=== PATIENT | female | born 1995 | race Hispanic/Latino ===

== ENCOUNTER 2017-08-02 10:48 | Emergency (ER) | payer MEDICAID | END 2017-08-02 11:37 | disposition home or self-care (01) | LOC: EDH 10:48 | DX: R07.89 Other chest pain (principal) | CPT/HCPCS: 99281 ==

== ENCOUNTER 2017-08-07 00:27 | Emergency (ER) | payer MEDICAID | END 2017-08-07 01:23 | disposition home or self-care (01) | LOC: EDH 00:27 | DX: S63.591A Other specified sprain of right wrist, initial encounter (principal); W18.39XA Other fall on same level, initial encounter; Y93.89 Activity, other specified; Y92.098 Other place in other non-institutional residence as the place of occurrence of the external cause; Y99.8 Other external cause status | CPT/HCPCS: 29125; 73110 ==

== ENCOUNTER 2017-09-24 12:31 | Emergency (ER) | payer MEDICAID ==
[2017-09-24] MEDS ORDERED: CHARCOAL/SORBITOL 50 GM/240 ML SUSP ONE (12:59)
[2017-09-24] MEDS ORDERED: CHARCOAL/AQUA 25 GM/120 ML TUBE ONE (12:59)
[2017-09-24 13:38] LABS: BASOPHILS % (AUTO) 0.2 % (0.0-5.0); EOSINOPHILS % (AUTO) 1.4 % (0.0-8.0); HEMATOCRIT 42.7 % (36-48); LYMPHOCYTES % (AUTO) 29.6 % (21.0-51.0); MEAN CORPUSCULAR HEMOGLOBIN 29.1 pg (27.0-33.0); MEAN CORPUSCULAR HGB CONC 34.3 g/dL (32.0-36.0); MONOCYTES % (AUTO) 6.4 % (3.0-13.0); NEUTROPHILS % (AUTO) 62.4 % (40.0-77.0); NUCLEATED RED BLOOD CELLS 0.1 % (0.0-0.19); PLATELET COUNT (AUTO) 296 K/uL (130-400); RED BLOOD CELL COUNT(AUTO) 5.02 MIL/uL (4.00-5.50); RED CELL DISTRIBUTION WIDTH 13.8 % (11.0-15.5); WHITE BLOOD COUNT (AUTO) 7.2 K/uL (4.8-10.8)
[2017-09-24 13:50] LABS: CARBON DIOXIDE 28 mmol/L (21-32); CHLORIDE 106 mmol/L (101-111); CREATININE 0.6 mg/dL (0.5-1.5); GLOMERULAR FILTR. RATE CALC 137 mL/min (>60); GLUCOSE,RANDOM 89 mg/dL (70-105); POTASSIUM 3.6 mmol/L (3.5-5.1); SODIUM SERUM 143 mmol/L (136-145); UREA NITROGEN, BLOOD 10 mg/dL (7-18)
[2017-09-24 13:55] LABS: ALANINE AMINOTRANSFERASE 89 U/L (12-78); ALBUMIN 4.1 g/dL (3.5-5.0); ASPARTATE AMINOTRANSFERASE 38 U/L (10-37); BILIRUBIN,TOTAL 0.7 mg/dL (0.2-1.0); TOTAL PROTEIN, SERUM 8.4 g/dL (6.0-8.3)
[2017-09-24 13:56] LABS: ACETAMINOPHEN < 1 mcg/mL (10-30); ALCOHOL, BLOOD < 3 mg/dL (0-10)
[2017-09-24 13:57] LABS: SALICYLATE < 2.8 mg/dL (2.8-20.0)
[2017-09-24 15:00] LABS: APPEARANCE,URINE CLOUDY (CLEAR); BILIRUBIN,URINE SMALL (NEGATIVE); COLOR,URINE YELLOW (YELLOW); GLUCOSE, URINE (UA) NEGATIVE (NEGATIVE); KETONES,URINE NEGATIVE (NEGATIVE); LEUKOCYTE ESTERASE ,URINE SMALL (NEGATIVE); NITRATE,URINE NEGATIVE (NEGATIVE); OCCULT BLOOD,URINE LARGE (NEGATIVE); PROTEIN,URINE TRACE (NEGATIVE)
[2017-09-24 15:08] LABS: AMPHET/METH SCREEN,URINE NEGATIVE (NEGATIVE); BARBITURATE SCREEN, URINE NEGATIVE (NEGATIVE); BENZODIAZEPINES SCREEN,URINE NEGATIVE (NEGATIVE); CANNABINOID SCREEN,URINE POSITIVE (NEGATIVE); COCAINE SCREEN,URINE NEGATIVE (NEGATIVE); OPIATE SCREEN,URINE NEGATIVE (NEGATIVE); PHENCYCLIDINE SCREEN,URINE NEGATIVE (NEGATIVE)
[2017-09-24 15:25] LABS: BACTERIA,URINE Few /HPF (None Seen); SQUAMOUS EPITHELIAL CELL,UR Moderate /HPF (0-2)
[2017-09-24 15:26] LABS: MUCUS,URINE Few LPF (None Seen)
== END 2017-09-24 18:11 | disposition home or self-care (01) ==
LOC: EDH 12:31
DX: T43.221A Poisoning by selective serotonin reuptake inhibitors, accidental (unintentional), initial encounter (principal); F41.9 Anxiety disorder, unspecified; Y92.89 Other specified places as the place of occurrence of the external cause
CPT/HCPCS: 36415; 80053; 80305; 81001; 85025; 93005; 99291; G0480 ×2; G0481

== ENCOUNTER 2018-04-04 01:38 | Emergency (ER) | payer MEDICAID ==
[2018-04-04] MEDS ORDERED: KETOROLAC TROMETHAMINE 60 MG/2 ML VIAL ONE (02:27)
[2018-04-04] MEDS ORDERED: CYCLOBENZAPRINE HCL 10 MG TABLET ONE (02:28)
== END 2018-04-04 02:38 | disposition home or self-care (01) ==
LOC: EDH 01:38
DX: M62.830 Muscle spasm of back (principal)
CPT/HCPCS: 96372; 99283; J1885

== ENCOUNTER 2018-06-10 14:29 | Emergency (ER) | payer MEDICAID ==
[2018-06-10 15:13] LABS: APPEARANCE,URINE CLOUDY (CLEAR); BILIRUBIN,URINE NEGATIVE (NEGATIVE); COLOR,URINE YELLOW (YELLOW); GLUCOSE, URINE (UA) NEGATIVE (NEGATIVE); KETONES,URINE 40 mg/dL (NEGATIVE); LEUKOCYTE ESTERASE ,URINE TRACE (NEGATIVE); NITRATE,URINE NEGATIVE (NEGATIVE); OCCULT BLOOD,URINE TRACE-INTACT (NEGATIVE); PH,URINE 7.5 (5.0-8.0); PROTEIN,URINE NEGATIVE (NEGATIVE)
[2018-06-10 15:21] LABS: HCG,QUAL RESULT NEGATIVE (NEGATIVE)
[2018-06-10 15:27] LABS: BACTERIA,URINE Moderate /HPF (None Seen)
[2018-06-10 15:28] LABS: SQUAMOUS EPITHELIAL CELL,UR Moderate /HPF (0-2)
[2018-06-10 15:29] LABS: MUCUS,URINE Few LPF (None Seen)
[2018-06-10] MEDS ORDERED: DEXAMETHASONE SOD PHOSPHATE 10MG/ML 1ML VIAL ONE (15:53)
[2018-06-10] MEDS ORDERED: ALBUTEROL SULFATE 0.083% 2.5 MG/3 ML INH IH ONE (16:03)
== END 2018-06-10 16:34 | disposition home or self-care (01) ==
LOC: EDH 14:29
DX: J20.9 Acute bronchitis, unspecified (principal)
CPT/HCPCS: 81001; 81025; 87804 ×2; 94640; 96372; 99283; J1100

== ENCOUNTER 2018-06-13 22:45 | Emergency (ER) | payer MEDICAID ==
[2018-06-13] MEDS ORDERED: IPRATROPIUM/ALBUTEROL SULFATE 3 ML SOLUTION IH ONE (23:01)
[2018-06-13] MEDS ORDERED: DEXAMETHASONE SOD PHOSPHATE 10MG/ML 1ML VIAL ONE (23:16)
[2018-06-13 23:40] LABS: HCG,QUAL RESULT NEGATIVE (NEGATIVE)
[2018-06-13 23:45] LABS: AMPHET/METH SCREEN,URINE NEGATIVE (NEGATIVE); BARBITURATE SCREEN, URINE NEGATIVE (NEGATIVE); BENZODIAZEPINES SCREEN,URINE NEGATIVE (NEGATIVE); CANNABINOID SCREEN,URINE POSITIVE (NEGATIVE); COCAINE SCREEN,URINE NEGATIVE (NEGATIVE); OPIATE SCREEN,URINE NEGATIVE (NEGATIVE); PHENCYCLIDINE SCREEN,URINE NEGATIVE (NEGATIVE)
== END 2018-06-14 00:33 | disposition home or self-care (01) ==
LOC: EDH 22:45
DX: J45.901 Unspecified asthma with (acute) exacerbation (principal); F12.10 Cannabis abuse, uncomplicated
CPT/HCPCS: 71045; 80305; 81025; 94640; 96372; 99284; J1100

== ENCOUNTER 2018-09-01 17:02 | Emergency (ER) | payer MEDICAID ==
[2018-09-01] MEDS ORDERED: IBUPROFEN 600 MG TABLET ONE (18:52)
== END 2018-09-01 19:33 | disposition home or self-care (01) ==
LOC: EDH 17:02
DX: S50.312A Abrasion of left elbow, initial encounter (principal); S80.211A Abrasion, right knee, initial encounter; M62.838 Other muscle spasm; V49.49XA Driver injured in collision with other motor vehicles in traffic accident, initial encounter; Y93.89 Activity, other specified; Y92.89 Other specified places as the place of occurrence of the external cause; Y99.8 Other external cause status
CPT/HCPCS: 70450; 72125; 73080; 73562; 81025

== ENCOUNTER 2018-12-26 17:25 | Emergency (ER) | payer MEDICAID | END 2018-12-26 19:00 | disposition home or self-care (01) | LOC: EDH 17:25 | DX: S43.401A Unspecified sprain of right shoulder joint, initial encounter (principal); X50.0XXA Overexertion from strenuous movement or load, initial encounter; Y93.89 Activity, other specified; Y92.098 Other place in other non-institutional residence as the place of occurrence of the external cause; Y99.8 Other external cause status | CPT/HCPCS: 73030 ==

== ENCOUNTER 2019-02-13 16:40 | Emergency (ER) | payer MEDICAID | END 2019-02-13 16:45 | disposition left against medical advice (07) | LOC: EDH 16:40 | DX: Z53.21 Procedure and treatment not carried out due to patient leaving prior to being seen by health care provider (principal) ==

== ENCOUNTER 2019-03-31 13:46 | Emergency (ER) | payer MEDICAID ==
[2019-03-31] MEDS ORDERED: FOSPHENYTOIN SODIUM 500 MG/10ML VIAL IJ ONE (14:18)
[2019-03-31] MEDS ORDERED: IOHEXOL-350 75 ML VIAL IV ONE (14:18)
[2019-03-31 14:24] LABS: BASOPHILS % (AUTO) 0.4 % (0.0-5.0); EOSINOPHILS % (AUTO) 0.6 % (0.0-8.0); LYMPHOCYTES % (AUTO) 22.4 % (21.0-51.0); MEAN CORPUSCULAR HEMOGLOBIN 30.7 pg (27.0-33.0); MEAN CORPUSCULAR HGB CONC 34.6 g/dL (32.0-36.0); MEAN CORPUSCULAR VOLUME 88.7 fL (80-100); MONOCYTES % (AUTO) 8.7 % (3.0-13.0); NEUTROPHILS % (AUTO) 67.9 % (40.0-77.0); PLATELET COUNT (AUTO) 251 K/uL (130-400); RED BLOOD CELL COUNT(AUTO) 4.28 MIL/uL (4.00-5.50); RED CELL DISTRIBUTION WIDTH 13.6 % (11.0-15.5); WHITE BLOOD COUNT (AUTO) 7.4 K/uL (4.8-10.8)
[2019-03-31 14:33] LABS: CREATININE 0.5 mg/dL (0.5-1.5); POTASSIUM 3.2 mmol/L (3.5-5.1)
[2019-03-31 14:38] LABS: ALBUMIN 4.1 g/dL (3.5-5.0); BILIRUBIN,TOTAL 0.4 mg/dL (0.2-1.0); TOTAL PROTEIN, SERUM 7.6 g/dL (6.0-8.3)
[2019-03-31 15:17] LABS: AMPHET/METH SCREEN,URINE NEGATIVE (NEGATIVE); BARBITURATE SCREEN, URINE NEGATIVE (NEGATIVE); BENZODIAZEPINES SCREEN,URINE NEGATIVE (NEGATIVE); CANNABINOID SCREEN,URINE POSITIVE (NEGATIVE); COCAINE SCREEN,URINE NEGATIVE (NEGATIVE); OPIATE SCREEN,URINE NEGATIVE (NEGATIVE); PHENCYCLIDINE SCREEN,URINE NEGATIVE (NEGATIVE)
[2019-03-31 15:18] LABS: HCG,QUAL RESULT POSITIVE (NEGATIVE)
[2019-03-31] MEDS ORDERED: ONDANSETRON HCL 4 MG/2 ML VIAL ONE (16:13)
[2019-03-31] MEDS ORDERED: ACETAMINOPHEN 325 MG TAB ONE (16:13)
== END 2019-03-31 16:58 | disposition home or self-care (01) ==
LOC: EDH 13:46
DX: R56.9 Unspecified convulsions (principal); F12.10 Cannabis abuse, uncomplicated; Z33.1 Pregnant state, incidental
CPT/HCPCS: 36415; 80053; 80305; 81025; 82550; 84702; 85025; 93005; 96365; 96366; 96375; 99285; J2405; Q2009; Q9967

== ENCOUNTER 2021-03-30 14:23 | Emergency (ER) | payer MEDICAID, OTHER, SELFPAY ==
[~2021-03-30] VITALS: Ht 165.1 cm; Wt 83.9 kg
[2021-03-30 14:40] VITALS: BP 110/64
== END 2021-03-30 16:11 | disposition left against medical advice (07) ==
LOC: EDH 14:23
DX: M79.604 Pain in right leg (principal); R51.9 Headache, unspecified; Z86.16 Personal history of COVID-19; Z88.0 Allergy status to penicillin
CPT/HCPCS: 99281